=== PATIENT | female | born 1975 ===

== ENCOUNTER 2017-05-31 08:10 | Day surgery (SDC) | payer BC ==
[~2017-05-31] VITALS: Ht 160 cm; Wt 66.2 kg
[2017-05-31] VITALS (11 sets, daily range): BP systolic 103–120; BP diastolic 51–73
[~2017-05-31 08:10] MED LIST: TAMOXIFEN CITRA20 MG ORAL; cefOXitin Sod 2 GM in D5W 55 ML IVPB ONE
--- NOTE | 2017-05-31 09:01 | Pre-op HX & Phy Repo 2 SIG ---
DATE OF ADMISSION: 05/31/2017 PREOPERATIVE DIAGNOSIS: This is a 41-year-old G1, P0 with severe left lower quadrant pain and a history of T2N1 breast CA here for BSO. HISTORY OF PRESENT ILLNESS: The patient is a 41-year-old G2, P2, who presented with left lower quadrant pain and bleeding for 3 weeks on 05/18/2017. The patient was evaluated. She had a 4 cm left ovarian cyst. The patient has been taking tamoxifen for the last 3 months. She was reassured and send home with close follow up. She presented to the emergency room because of worsening left lower quadrant pain. In the emergency room, she was diagnosed with a 7 cm complex left ovarian mass. She came back to my office on 05/25/2017 after evaluation in the emergency room where she was found to have a 7 to 8 cm hemorrhagic left mass. On ultrasound in the office, again the left-sided hemorrhagic ovarian mass was discovered as well as multiple fibroids as previously and uterine prolapse with a gr3 cystocele. The patient was extensively counseled. The mass appeared to be hemorrhagic. She was advised that the mass could resolve on its own, however, she wanted to have surgery immediately since the pain was unbearable. So, plans were made for left oophorectomy. The patient arrived for preoperative H and P with her on 05/26/2017. At that time, again extensive discussion about what type of surgery she would want was commenced. The patient was offered laparoscopic-assisted vaginal hysterectomy since she also has a grade 2 prolapse and uterine fibroids. We discussed that given that degree of cystocele she needs urological evaluation and possible sling. Also we discussed prophylactic bilateral oophorectomy secondary to ER-positive, progesterone positive stage II tumor with sentinel lymph node positive and possibly decreased recurrence rates after BSO. This discussion was extensive and encompassed her lack of chemotherapy and poor tolerance of tamoxifen with bleeding and hot flashes. The patient and her would like to proceed with bilateral salpingo-oophorectomy. They understand that the surgery will render her sterile as well as take her into menopause including hot flushes, night sweats, decreased libido, possible headaches, possible osteoporosis, etc. The patient understands all that, and she would like to diminish her risk of breast cancer recurrence by any means possible. She also does not wish to take tamoxifen further because she feels that it contributes to hot flashes and irregular bleeding. PAST MEDICAL HISTORY: Breast CA stage II. PAST SURGICAL HISTORY: Lumpectomy. ALLERGIES: None. SOCIAL HISTORY: The patient lives with her . She has 2 grown sons. She does not drink or smoke. REVIEW OF SYSTEMS: Contributory for irregular bleeding and hot flashes. PHYSICAL EXAMINATION: GENERAL: Young appearing normal weight female, in no acute distress. VITAL SIGNS: Height 5 feet 3 inches and weight 146. Blood pressure 100/60, respiratory rate 18, and temperature 97.8 degrees. HEAD AND NECK: Pupils are equal and reactive to light. LUNGS: Clear to auscultation bilaterally. CARDIAC: Regular rate and rhythm. ABDOMEN: Soft, nondistended, and nontender. PELVIC: Bimanual exam, tender left-sided ovarian mass, 7 cm in size. Uterus 14-week size, irregular. Uterus, grade 2 prolapse, grade 1-2 cystocele, grade 1 rectocele. RECTAL: No masses. EXTREMITIES: No clubbing, cyanosis, or edema. LABORATORY AND DIAGNOSTIC DATA: Labs within normal and included with the chart. ASSESSMENT: A 41-year-old 2, para 2 with a 7 cm left hemorrhagic mass, severe left lower quadrant pain, history of premenopausal, stage II breast cancer, also fibroid uterus, prolapse and prolonged irregular bleeding. PLAN: Plan is for bilateral salpingo-oophorectomy, hysteroscopy and D&C at this time. Also, the patient understands that she may need laparoscopically-assisted vaginal hysterectomy and sling at a future time. Sheila Gallagher M.D. DR: CINDY JOB#: [id number] CC: ASHLEY
[2017-05-31] MEDS ORDERED: cefOXitin 2gm Inj ONE (09:27)
[2017-05-31] MEDS ORDERED: Propofol 200mg/20ml IV ONE ×2 (09:28→10:45)
[2017-05-31] MEDS ORDERED: cefOXitin 1gm Inj ONE (09:31)
[2017-05-31] MEDS ORDERED: fentaNYL 100 mcg/2 mL IV ONE (10:45)
[2017-05-31] MEDS ORDERED: Ketorolac 30mg Inj ONE (10:45)
[2017-05-31] MEDS ORDERED: Glycopyrrolate 0.2mg/ml 1ml Vial ONE (10:45)
[2017-05-31] MEDS ORDERED: Sterile Water Irrig 1000ml IRRIG ONE (10:45)
[2017-05-31] MEDS ORDERED: Succinylcholine 20mg/ml 10ml vial ONE (10:45)
[2017-05-31] MEDS ORDERED: Zemuron 50mg/5ml Inj IV ONE (10:45)
[2017-05-31] MEDS ORDERED: NS Irrig 1000ml ONE (10:45)
[2017-05-31] MEDS ORDERED: Neostigmine 1mg/ml 10ml Inj ONE (10:45)
[2017-05-31] MEDS ORDERED: LR 1000ml ONE (10:45)
[2017-05-31] MEDS ORDERED: Morphine Sulfate 10mg/ml Inj ONE (10:45)
[2017-05-31] MEDS ORDERED: Midazolam 2mg/2ml Inj ONE (10:45)
[2017-05-31] MEDS ORDERED: Sodium Chloride 10ml vial INJ ONE (10:45)
--- NOTE | 2017-05-31 10:52 | Pre-Procedure Note/Attestation ---
Pre-Procedure Note/Attestation Complete Prior to Procedure Planned Procedure: bilateral Indications for Procedure Pre-Operative Diagnosis: large left ovarian mass, pain, history of breast cancer, desires bilateral prophylactic salpingoopherectomy Attestation I attest that I discussed the nature of the procedure; its benefits; risks and complications; and alternatives (and the risks and benefits of such alternatives ), prior to the procedure, with the patient (or the patient's legal sales representative public utilities). I attest that, if there was a reasonable possibility of needing a blood transfusion, the patient (or the patient's legal sales representative public utilities) was given the [facility] standardized written summary, pursuant to the René Susy Blood Safety Act ([place] Health and Safety Code # 1645, as amended). I attest that I re-evaluated the patient just prior to the surgery and that there has been no change in the patient's H&P, except as documented below: FRANCO SINGH May 31, 2017 10:52
--- NOTE | 2017-05-31 10:53 | Pre-Procedure Note/Attestation ---
Pre-Procedure Note/Attestation Complete Prior to Procedure Planned Procedure: bilateral Procedure Narrative: bilateral salpingoopherectomy Indications for Procedure Pre-Operative Diagnosis: large left ovarian mass, pain, history of breast cancer, desires bilateral prophylactic salpingoopherectomy Attestation I attest that I discussed the nature of the procedure; its benefits; risks and complications; and alternatives (and the risks and benefits of such alternatives ), prior to the procedure, with the patient (or the patient's legal sales representative supervisor). I attest that, if there was a reasonable possibility of needing a blood transfusion, the patient (or the patient's legal sales representative supervisor) was given the [place] [facility] standardized written summary, pursuant to the René Susy Blood Safety Act ([place] Health and Safety Code # 1645, as amended). I attest that I re-evaluated the patient just prior to the surgery and that there has been no change in the patient's H&P, except as documented below: FRANCO SINGH May 31, 2017 10:53
[2017-05-31] MEDS ORDERED: Ropivacaine 5mg/ml Vial 30ml INJ ONE (11:26)
[2017-05-31] MEDS ORDERED: LR 1000ml 1,000 ML IVLG SCH (11:44)
--- NOTE | 2017-05-31 11:44 | Anethesia Preoperative Eval ---
Anesthesia Pre-op PMH/ROS General Date of Evaluation: May 31, 2017 Time of Evaluation: 10:38 Anesthesiologist: Bita ASA Score: ASA 2 Mallampati Score Class I : Soft palate, uvula, fauces, pillars visible Class II: Soft palate, uvula, fauces visible Class III: Soft palate, base of uvula visible Class IV: Only hard plate visible Mallampati Classification: Class II Surgeon: Aileen Diagnosis: Ovarian mass Surgical Procedure: D&C Hysteroscopy Laparoscopic oophorectomy Anesthesia History: none Allergies: Coded Allergies: No Known Allergies (Unverified , 05/30/17) Medications: see eMAR Past Medical History Cardiovascular: Denies: HTN, CAD, [place], valve dz, arrhythmia, other Pulmonary: Denies: asthma, COPD, JOSE, other Gastrointestinal/Genitourinary: Reports: GERD - mild, Denies: CRI, ESRD, other Neurologic/Psychiatric: Denies: dementia, CVA, depression/anxiety, TIA, other Endocrine: Denies: DM, hypothyroidism, steroids, other HEENT: Denies: cataract (L), cataract (R), glaucoma, LAC VIEUX (L), LAC VIEUX (R), other Hematology/Immune: Reports: other - Breast CA s/p lumpectomy and radiation, Denies: anemia, DVT, bleeding disorder Musculoskeletal/Integumentary: Denies: OA, RA, DJD, DDD, edema, other PMH Narrative: Lumpectomy, breast reconstruction Anesthesia Pre-op Phys. Exam Physician Exam Last Vital Signs Date Time Temp Pulse Resp B/P (MAP) Pulse Ox O2 Delivery O2 Flow Rate FiO2 05/31/17 08:44 98.1 69 17 103/72 100 Room Air Constitutional: NAD Neurologic: CN 2-12 intact Cardiovascular: RRR, no M/R/G Respiratory: CTA Gastrointestinal: S/NT/ND Airway Exam Mallampati Score: Class II MO: full Neck: flexible ROM: full Teeth: intact Dentures: no upper, no lower Anesthesia Pre-op A/P Labs see chart Urine Test Test 05/31/17 08:30 Urine HCG, Qualitative Negative Studies Pre-op Studies: EKG - NSR Risk Assessment & Plan Assessment: ASA 2 Plan: GA with ETT PONV prevention Status Change Before Surgery: No Pre-Antibiotics Drug: Cefoxitin 1 gr. Given Within 1 Hr of Incision: Yes Time Given: 11:20 BRIANNA LYNNE M.D. May 31, 2017 11:44
[2017-05-31] MEDS ORDERED: Meperidine 50mg/ml Inj(FOR RIGORS ONLY) IV PRN ×2 (11:45)
[2017-05-31] MEDS ORDERED: DiphenhydrAMINE 50mg/ml Inj IVP PRN (11:45)
[2017-05-31] MEDS ORDERED: Ketorolac 30mg Inj IV PRN (11:45)
[2017-05-31] MEDS ORDERED: Hydromorphone 0.5mg/0.5ml inj IVP PRN (11:45)
[2017-05-31] MEDS ORDERED: Midazolam 2mg/2ml Inj IVP PRN (11:45)
[2017-05-31] MEDS ORDERED: Metoclopramide 10mg/2ml Inj IVP PRN (11:45)
--- NOTE | 2017-05-31 13:07 | Brief Operative Note ---
Immediate Post Operative Note Operative Note Pre-op Diagnosis: large left ovarian mass, pain, history of breast cancer, desires bilateral prophylactic salpingoopherectomy Procedure: #[id number] dictation/// bilateral salpingoopherectomy hysteroscopy dilation and curettage Post-op Diagnosis: same large left ovarian mass Post-op Diagnosis: same as pre-op Surgeon: devorah Travel Attendants: jw Anesthesiologist: amy Anesthesia: general Specimen: yes - bilateral ovaries and tubes/ endometrial curettings Complications: none Condition: stable Fluids: 1500 cc Estimated Blood Loss: volume - 100cc Drains: none Implant(s) used?: No FRANCO SINGH May 31, 2017 13:07
--- NOTE | 2017-05-31 13:14 | Immediate Post-Op Evaluation ---
Immediate Post-Op Evalulation Immediate Post-Op Evalulation Procedure: D&C Hysteroscopy bilateral laparoscopic oophorectomy Date of Evaluation: May 31, 2017 Time of Evaluation: 13:13 IV Fluids: 1500 Blood Products: none Estimated Blood Loss: 100 Urinary Output: 300 Blood Pressure Systolic: 115 Blood Pressure Diastolic: 64 Pulse Rate: 74 Respiratory Rate: 20 O2 Sat by Pulse Oximetry: 99 Temperature (Fahrenheit): 98.2 Pain Score (1-10): 2 Nausea: No Vomiting: No Complications none Patient Status: reacts, patent, extubated, none Hydration Status: adequate BRIANNA LYNNE M.D. May 31, 2017 13:14
[2017-06-01 08:13] VITALS: BP 108/65
--- NOTE | 2017-06-01 08:13 | 48 Hour Post Anesthesia Eval ---
Post Anesthesia Evaluation Procedure: D&C Hysteroscopy bilateral laparoscopic oophorectomy Date of Evaluation: Jun 01, 2017 Time of Evaluation: 08:11 Blood Pressure Systolic: 108 0: 65 Pulse Rate: 84 Respiratory Rate: 18 Temperature (Fahrenheit): 97.6 O2 Sat by Pulse Oximetry: 99 Airway: patent Nausea: No Vomiting: No Pain Intensity: 2 Hydration Status: adequate Cardiopulmonary Status: stable Mental Status/LOC: patient returned to baseline Follow-up Care/Observations: n/a Post-Anesthesia Complications: none Follow-up care needed: ready to discharge BRIANNA LYNNE M.D. Jun 01, 2017 08:13
--- NOTE | 2017-06-01 09:15 | Operative Note - Dictated ---
DATE OF OPERATION: 05/31/2017 PREOPERATIVE DIAGNOSIS: Large left ovarian mass, pain, history of breast cancer, desires bilateral prophylactic salpingo-oophorectomy. POSTOPERATIVE DIAGNOSIS: Large left ovarian mass, pain, history of breast cancer, desires bilateral prophylactic salpingo-oophorectomy. PROCEDURES: Bilateral salpingo-oophorectomy, hysteroscopy, and dilation and curettage. SURGEON: Sheila Gallagher M.D. COPY MESSENGER: Ayala Mascorro M.D. ANESTHESIOLOGIST: Tom Sunshine M.D. ANESTHESIA: General endotracheal. ESTIMATED BLOOD LOSS: 100 mL. COMPLICATIONS: None. PROCEDURE IN DETAIL: After ensuring informed consent, the patient was taken to the operating room, where general anesthesia was induced. The patient was sterilely prepped and draped. Weighted speculum was placed in the vagina. Cervix was dilated to an 8 Hegar dilator. Hysteroscope was placed inside the uterine cavity. Uterine cavity was distended with normal saline. Bilateral ostia was observed. There was a small submucosal fibroid observed. Fractional curettage was performed. A HUMI-type manipulator was placed inside the uterine cavity. Next, attention was turned to the umbilicus where a small incision was made inside the umbilicus and Veress needle was placed inside the peritoneal cavity and intraperitoneal placement was confirmed with low opening pressures. Next, a 10 mm trocar was placed inside the umbilicus and intraperitoneal placement was confirmed with the camera. Next, pelvis was explored. There was approximately an 8 cm left ovarian mass that appeared cystic in nature. The right ovary appeared within normal limits. Tubes were within normal limits. There were multiple fibroids both intramural and subserosal observed. Next, left lateral trocar was placed under direct visualization and a 10 mm suprapubic trocar was also placed under direct visualization. Next, the left ovary was grasped. Infundibulopelvic was identified and ablated cautery was used. Bipolar cautery was used alongside the infundibulopelvic. The infundibulopelvic was cauterized and transected. The resection and catheterization was continued alongside the left broad ligament. Also, the tube and utero-ovarian were likewise grasped, cauterized, and transected until the left ovary with tube removed and placed in the cul-de-sac. Next, attention was turned to the right side where please note bilateral ureters were visualized first and then attention was turned to the right side where the infundibulopelvic was identified, skeletonized, grasped, cauterized, and transected. Then, both utero-ovarian and the left tube were grasped, cauterized, and transected. Transection was continued along the broad ligament until the right tube and ovary were amputated and placed in the cul-de-sac. Please note that at that point, the infundibulopelvic ligament was bleeding, it was cauterized with Klekyleigh's bipolar cautery, and as it was grasped and cauterized, it bubbled and there was no direct contact with the bowel or surrounding tissues at any time. At this point, bowel were inspected and there was a small bruised area on the epiploica that may or may not have been related to the bubble created by the bipolar. Next, bilateral ovaries were placed into an endobag and removed. The left ovary was removed piecemeal because it was so large with Kochers and the right ovary was removed more or less than one piece. At the end, pelvis was copiously irrigated. The irrigant was removed. Excellent hemostasis was again assured and the area on the epiploica of the rectus sigmoid was again looked at and while it appears slightly bruised, again the area was on the epiploica. At the end of the procedure, all trocars were removed under direct visualization. The fascia was closed with #0 Vicryl in both suprapubic and intraumbilical sites and left lateral was closed with Steri-Strips. At the end of the procedure, all instrument and lap counts were correct x2. The patient was taken to the recovery area, extubated, and in stable condition. Sheila Gallagher M.D. DR: SEAN JOB#: [id number] CC: ASHLEY
--- NOTE | 2017-06-01 16:42 | Cardiology Report ---
APPROVED REPORT EKG Measurement Heart [id number] Normal sinus rhythm Normal ECG
== END 2017-05-31 16:40 | disposition home or self-care (01) ==
LOC: SUR 08:10
DX: N83.9 Noninflammatory disorder of ovary, fallopian tube and broad ligament, unspecified (principal); K21.9 Gastro-esophageal reflux disease without esophagitis; Z85.3 Personal history of malignant neoplasm of breast
CPT/HCPCS: 58558; 58661; 81025; 93005; J0330; J0694; J1885; J2250; J2270; J2405; J2704; J2710; J2765; J2795; J3010; J7120; 94003; 94150